=== PATIENT | female | born 1965 | race Caucasian/White ===

== ENCOUNTER 2021-04-06 07:39 | Day surgery (SDC) | payer OTHER ==
[2021-04-04 09:12] VITALS: BMI 26.2
[2021-04-06] MEDS ORDERED: PROPOFOL 20 ML ONE ×3 (07:57)
[2021-04-06] MEDS ORDERED: LIDOCAINE HCL/PF 2% SDV 5ML VIAL ONE (07:57)
[2021-04-06 10:13] VITALS: PULSE 80; TEMP 98
[2021-04-06 10:55] VITALS: BP 106/65
== END 2021-04-06 10:35 | disposition home or self-care (01) ==
LOC: FASU-ENDO 07:39
PROVIDERS: ATTEND Internal Medicine Gastroenterology
PROC: 0DJD8ZZ Inspection of Lower Intestinal Tract, Via Natural or Artificial Opening Endoscopic (ICD-10-PCS; principal; 2021-04-06 09:39)
DX: Z12.11 Encounter for screening for malignant neoplasm of colon (principal)